=== PATIENT | female | born 1995 | race Caucasian/White ===

== ENCOUNTER → 2016-08-11 | Emergency (ER) | payer BC ==
[2016-08-11 10:16] VITALS: BP 127/59; PULSE 81; RESP 18; TEMP 98.4; O2SAT 97
--- NOTE | 2016-08-11 10:20 | UCPHY ---
H & P Patient Type: New Chief Complaint Nursing Narrative: 3 wks of sinus pain pressure. Has been using homeopathic treatments. Time Seen by Provider: 08/11/16 10:11 HPI/ROS: Chief Complaint: Sinus pain/congestion HPI: 21-year-old female presenting with 3 weeks of sinus pain and congestion. Symptoms started as a viral upper respiratory type infection 3 weeks ago with mildly productive cough. Congestion, discharge. Since the patient had increasing congestion and facial headaches with pressure. No fevers or chills. No nausea or vomiting. Cough is since resolved. ROS: 10 point Review of Systems is negative except as noted in the HPI. PMH: None Medications: None Medication allergies: No known drug allergies Social History: No smoking, no alcohol, no recreational drug use Family History: non-contributory Physical Exam: Gen: Awake, Alert, No Distress HEENT: She has sinus tenderness to percussion over her right and left maxillary sinuses Nose: no rhinorrhea Eyes: PERRLA, EOMI Mouth: Moist mucosa mild pharyngeal erythema without exudate or edema Neck: Supple, no JVD Chest: nontender, lungs clear to auscultation Heart: S1, S2 normal, no murmur Ext: no edema, non-tender Skin: no rash Neuro: CN II-XII intact, Sensation grossly intact, Strength 5/5 in bilateral upper and lower extremities - Personal History LMP (Females 10-55): 15-21 Days Ago - Medical/Surgical History Other PMH: PCP none. Med none - Family History Significant Family History: No pertinent family hx - Social History Smoking Status: Current some day smoker Constitutional: Initial Vital Signs Temperature (C) 36.9 C 08/11/16 10:12 Heart Rate 81 08/11/16 10:12 Respiratory Rate 18 08/11/16 10:12 Blood Pressure 127/59 H 08/11/16 10:12 O2 Sat (%) 97 08/11/16 10:12 O2 Delivery Mode Room Air Allergies/Adverse Reactions: No Known Allergies Allergy (Unverified 08/11/16 10:15) Home Medications: Medication Instructions Recorded Amoxicillin 500 mg PO TID 10 Days 08/11/16 Departure - Departure Disposition: Home, Routine, Self-Care Clinical Impression: Sinusitis Condition: Good Instructions: Sinusitis (ED) Additional Instructions: Please stop using the [id number] nasal sprays. Follow up with primary care physician in about a week if symptoms are not improving. Please make sure to take the full course of antibiotics. Referrals: NONE *PRIMARY CARE P,. [Primary Care Provider] - As per Instructions Torsten Stevens MD [Medical Doctor] - As per Instructions Prescriptions: Amoxicillin 500 mg PO TID 10 Days - PQRS PQRS Measurement: NA
== END | disposition home or self-care (01) ==
LOC: CED 10:07
DX: J01.90 Acute sinusitis, unspecified (principal); Z72.0 Tobacco use
CPT/HCPCS: 99204-PO; G0463-PO

== ENCOUNTER 2016-08-29 11:36 | Emergency (ER) | payer BC ==
--- NOTE | 2016-08-29 11:48 | EDPHY ---
H & P Stated Complaint: etoh last night vomited with blood in it abd discomfort HPI/ROS: CHIEF COMPLAINT: Vomiting, abdominal pain. HISTORY OF PRESENT ILLNESS: The patient is a 21-year-old female with a history of stomach ulcer who presents with abdominal pain for the past few days and vomiting that began last night. She vomited multiple times and the last two bouts her vomitus was flecked with brownish red spots. SThis feels similar to her previous ulcer. She denies diarrhea, bloody stool. She has treated the abdominal pain with Midol and Ibuprofen to little effect. She did have 3 glasses of wine last night. She recently finished a course of antibiotics for sinusitis. REVIEW OF SYSTEMS: A ten point review of systems was performed and is negative with the exception of the items mentioned in the HPI. Source: Patient Exam Limitations: No limitations - Personal History LMP (Females 10-55): IUD In Place Current Tetanus/Diphtheria Vaccine: No - Medical/Surgical History Hx Asthma: No Hx Chronic Respiratory Disease: No Hx Diabetes: No Hx Cardiac Disease: No Hx Renal Disease: No Hx Cirrhosis: No Hx Alcoholism: No Hx HIV/AIDS: No Hx Splenectomy or Spleen Trauma: No Other PMH: Ulcer. 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 Social alcohol use. Occasional cigarette use. - Physical Exam Exam: General Appearance: Alert. Vital signs reviewed. Eyes: Pupils equal and round, no conjunctival injection, no discharge. Anicteric. ENT, Mouth: Mucous membranes are moist, no oropharyngeal erythema or edema. Neck: No lymphadenopathy, supple. Respiratory: Lungs are clear to auscultation; no wheezes, rales, or rhonchi. Cardiovascular: Regular rate and rhythm; no murmur, rub, or gallop. Gastrointestinal: Abdomen is soft, no masses or organomegaly, bowel sounds normal. Lower abdominal tenderness. No guarding or rebound. Rectal exam: Skin: Warm and dry, no rashes on exposed skin, normal color. Back: Nontender to palpation over the thoracolumbar spine. No CVAT. Extremities: No lower extremity edema, no calf tenderness or swelling. Neurological: Alert and oriented. Moving all four extremities easily and equally. Psychiatric: Normal affect. Constitutional: Initial Vital Signs Temperature (C) 36.8 C 08/29/16 11:43 Heart Rate 65 08/29/16 11:43 Respiratory Rate 20 08/29/16 11:43 Blood Pressure 107/59 L 08/29/16 11:43 O2 Sat (%) 100 08/29/16 11:43 O2 Delivery Mode Room Air Allergies/Adverse Reactions: No Known Allergies Allergy (Verified 08/29/16 11:40) Home Medications: Medication Instructions Recorded Hydrocodone/APAP 5/325 [Callahan 1 - 2 tab PO Q4 PRN #10 tab 08/29/16 5/325 (RX)] Ondansetron Odt [Zofran Odt 4 mg 4 mg PO Q4 PRN #10 tab 08/29/16 (RX)] Medical Decision Making ED Course/Re-evaluation: 21-year-old female with a history of prior ulcer presents with bloody vomiting and lower abdominal pain since last night. She describes two episodes of vomit flecked with reddish brown flakes. This feels similar to her prior ulcer. We will check blood work and send a stool sample to the lab for occult testing. An IV was established. She will be given Pepcid 20 mg IV. She received 1 L normal saline. I reviewed the patient's laboratory studies. WBC elevated at 12.50. Hemoglobin and hematocrit are normal at 13.5 and 39.3. Stool is negative for blood. Liver functions and lipase are normal. H. pylori negative. I do not suspect biliary colic, cholecystitis, or pancreatitis at this point. Re-examination at 1:30 p.m.: She has not had vomiting. She is been drinking water without difficulty. She reports continued abdominal pain, on exam abdomen is soft with mild diffuse tenderness, perhaps slightly worse in both lower quadrants. No guarding. We discussed further evaluation of her lower abdominal pain such as pelvic ultrasound to assess her lower abdominal pain. At this point in time she would like to watch and wait. test is negative. No urinary symptoms. She is hemodynamically stable. She feels that she can safely return home. She is given a prescription for Zofran and for vicodin #10 to use prn. She is advised to avoid alcohol, tobacco, NSAIDs. Danger signs reviewed. Differential Diagnosis: Abdominal pain including but not limited to ectopic , ovarian torsion, ovarian cyst, appendicitis, cholecystitis, gastritis/peptic ulcer disease and urinary tract infection. - Data Points Laboratory Results: Laboratory Results 08/29/16 12:00 08/29/16 12:00 Medications Given: Discontinued Medications Famotidine/Sodium Chloride (Pepcid 20 Mg (Premix)) 50 mls @ 200 mls/hr IV EDNOW ONE Stop: 08/29/16 13:16 Last Admin: 08/29/16 13:08 Dose: 50 mls Departure - Departure Disposition: Home, Routine, Self-Care Clinical Impression: Abdominal pain Qualifiers: Abdominal location: generalized Qualified Code(s): R10.84 - Generalized abdominal pain Gastritis Qualifiers: Gastritis type: other gastritis Chronicity: acute Gastritis bleeding: presence of bleeding unspecified Qualified Code(s): K29.00 - Acute gastritis without bleeding Condition: Good Instructions: Gastritis (ED), Abdominal Pain (ED) Additional Instructions: --Take Pepcid as prescribed. Follow up with Dr. Jin, outpatient medicine, for reevaluation. Return for any serious worsening of condition--such as persistent vomiting, fever, severe abdominal pain. Referrals: Alcides Jin MD [[facility] [place] Primary Care Provider] - As per Instructions Prescriptions: Hydrocodone/APAP 5/325 [Callahan 5/325 (RX)] 1 - 2 tab PO Q4 PRN #10 tab PRN Reason: pain Ondansetron Odt [Zofran Odt 4 mg (RX)] 4 mg PO Q4 PRN #10 tab PRN Reason: nausea Report Scribed for: Zohra Sanchez Report Scribed by: Amos Hernandez Date of Report: 08/29/16 Time of Report: 12:23 Physician Review and Approval Statement: 08/29/16 11:48 Portions of this note were transcribed by the biomedical field service engineer. I, Dr. Zohra Sanchez, personally performed the history, physical exam, and medical decision- making; and confirmed the accuracy of the information in the transcribed note.
[2016-08-29 12:50] LABS: % IMMATURE GRANULYOCYTES 0.5 % (0.0-1.1); ABSOLUTE IMMATURE GRANULOCYTES 0.06 10^3/uL (0.00-0.10); ADD DIFF? NO; ADD MORPH? NO; ADD SCAN? NO; ATYPICAL LYMPHOCYTE FLAG 10 (0-99); FRAGMENT RBC FLAG 0 (0-99); HEMATOCRIT 39.3 % (38.0-47.0); HEMOGLOBIN 13.5 g/dL (12.6-16.3); LEFT SHIFT FLG 0 (0-99); LIPEMIA HEMOLYSIS FLAG 90 (0-99); MEAN CELL HEMOGLOBIN 31.6 pg (27.9-34.1); MEAN CELL HEMOGLOBIN CONCENTR. 34.4 g/dL (32.4-36.7); MEAN PLATELET VOLUME 10.8 fL (8.7-11.7); PLATELET CLUMPS FLAG 0 (0-99); PLATELET COUNT 370 10^3/uL (150-400); RED BLOOD CELL COUNT 4.27 10^6/uL (4.18-5.33); RED CELL DISTRIBUTION WIDTH 12.5 % (11.5-15.2)
[2016-08-29 12:52] LABS: ALANINE AMINOTRANSFERASE 34 IU/L (9-52); ALBUMIN 4.6 g/dL (3.5-5.0); ALKALINE PHOSPHATASE 76 IU/L (38-126); ANION GAP 14 mEq/L (8-16); ASPARTATE AMINOTRANSFERASE 27 IU/L (14-46); BILIRUBIN,TOTAL 0.9 mg/dL (0.1-1.4); BILIRUBIN-CONJUGATED 0.3 mg/dL (0.0-0.5); BILIRUBIN-UNCONJUGATED 0.6 mg/dL (0.0-1.1); CALCIUM 9.7 mg/dL (8.5-10.4); CARBON DIOXIDE 24 mEq/l (22-31); CHLORIDE 102 mEq/L (97-110); CREATININE 0.7 mg/dL (0.6-1.0); GLOMERULAR FILTRATION RATE > 60; GLUCOSE 82 mg/dL (70-100); POTASSIUM 4.4 mEq/L (3.5-5.2); SODIUM 140 mEq/L (134-144); TOTAL PROTEIN 7.6 g/dL (6.3-8.2)
[2016-08-29] MEDS ORDERED: FAMOTIDINE 20 MG/NACL 50 ML IV ONE (13:02)
[2016-08-29 14:11] VITALS: BP 130/90; PULSE 80; RESP 14; TEMP 98.4; O2SAT 94
== END 2016-08-29 14:10 | disposition home or self-care (01) ==
DX: K29.00 Acute gastritis without bleeding (principal); F17.200 Nicotine dependence, unspecified, uncomplicated
CPT/HCPCS: 96365